=== PATIENT | female | born 1970 | race Caucasian/White ===

== ENCOUNTER → 2017-11-08 | Outpatient (CLI) | payer OTHER ==
[~2017-11-08] MED LIST: ARMTHY90PT PO; CHOL200038 PO; CYAN1TAB68 PO; METR-1 PO; MULT-885 PO; THYR60TA25 PO
--- NOTE | 2017-11-08 16:05 | RADIOLOGY IMAGING REPORT ---
FACILITY: [facility] PATIENT NAME: JHON TRAVIS : [id number] MR: [id number] V: [id number] EXAM DATE: [id number] ORDERING PHYSICIAN: LUIS ANTONIO KRISHNAMURTHY TECHNOLOGIST: Shanna Booth PROCEDURE:BILATERAL DIGITAL SCREENING MAMMOGRAM WITH CAD ASSISTED INTERPRETATION & 3D TOMOSYNTHESIS COMPARISON:10/03/15, and priors to 02/24/2011. INDICATIONS:screening FINDINGS: Breast parenchyma is heterogeneously dense. There is an asymmetry in the posterior superior Right breast in the MLO projection (slice 17). In the Left breast there is an asymmetry in the deep medial 9 o'clock area of the breast (CC slice 14, MLO slice 15). DIAGNOSTIC CATEGORY 0--INCOMPLETE: NEED ADDITIONAL IMAGING EVALUATION. RECOMMENDATIONS: 1. BILATERAL DIAGNOSTIC MAMMOGRAM. SPOT COMPRESSION RIGHT MLO VIEW WITH TOMOSYNTHESIS WELL A TRUE MLO VIEW WITH TOMOSYNTHESIS. LEFT BREAST SPOT COMPRESSION MEDIAL EXAGGERATED CC AND MLO VIEWS WITH TOMOSYNTHESIS WELL A TRUE MLO VIEW WITH TOMOSYNTHESIS. 2. ULTRASOUND OF THE RIGHT AND/OR LEFT BREAST INDICATED BY ADDITIONAL VIEWS. IMPRESSION: BIRADS 0: Incomplete Dictated by: Amadou Ojeda on 11/08/2017 at 15:29 Transcribed by: ROMI on 11/08/2017 at 16:01 Approved by: Amadou Ojeda on 11/08/2017 at 16:04 [facility]
== END ==
LOC: MAMO 00:45
PROVIDERS: ATTEND Obstetrics & Gynecology
DX: Z12.31 Encounter for screening mammogram for malignant neoplasm of breast (principal); R92.8 Other abnormal and inconclusive findings on diagnostic imaging of breast
CPT/HCPCS: 77063; 77067

== ENCOUNTER → 2017-11-18 | Outpatient (CLI) | payer OTHER ==
--- NOTE | 2017-11-21 10:55 | RADIOLOGY IMAGING REPORT ---
FACILITY: [facility] [place] PATIENT NAME: JHON TRAVIS : [id number] MR: [id number] V: [id number] EXAM DATE: ORDERING PHYSICIAN: LUIS ANTONIO KRISHNAMURTHY TECHNOLOGIST: Melissa Garrison RDMS PROCEDURE:US LEFT BREAST COMPARISON:None. INDICATIONS:Further evaluation FINDINGS: There is a 9mm cyst posterior to the Left nipple which would account for the recent mammographic findings. DIAGNOSTIC CATEGORY 2--BENIGN FINDING. RECOMMENDATIONS: ROUTINE MAMMOGRAM AND CLINICAL EVALUATION. IMPRESSION: BIRADS 2: Benign finding. There is a 9mm cyst posterior to the Left nipple which would account for the recent mammographic findings. Dictated by: Phyllis Samson M.D. on 11/18/2017 at 14:53 Transcribed by: ROMI on 11/18/2017 at 15:50 Approved by: Phyllis Samson M.D. on 11/21/2017 at 10:54 [facility]
--- NOTE | 2017-11-21 10:55 | RADIOLOGY IMAGING REPORT ---
[place] [facility] [place] NAME: JHON TRAVIS : [id number] MR: [id number] V: [id number] EXAM DATE: ORDERING PHYSICIAN: LUIS ANTONIO KRISHNAMURTHY TECHNOLOGIST: Shanna Booth PROCEDURE:BILATERAL DIAGNOSTIC DIGITAL MAMMOGRAM WITH 3D TOMOSYNTHESIS COMPARISON:Prior mammograms 11/08/17, 10/03/15, 07/19/14, 06/01/13, 05/05/12, 02/24/11. INDICATIONS:FURTHER EVAL FINDINGS: Patient returns for full field mediolateral view of both breasts, rolled views in Left MLO projection, Left XCC view, Spot compression view in the Left CC & MLO projections and in the Right MLO projection. The asymmetry seen on the recent mammogram in the posterior superior portion of the Right breast on the prior Right MLO view appears compressible and apparently represents summation shadow. The asymmetry in the deep medial approximate 9 o'clock position Left breast was reconfirmed with the additional views. Today's Left breast Ultrasound demonstrated and 9mm cyst just posterior to the Left nipple which would account for the mammographic findings. DIAGNOSTIC CATEGORY 2--BENIGN FINDING. RECOMMENDATIONS: ROUTINE MAMMOGRAM AND CLINICAL EVALUATION. IMPRESSION: BIRADS 2: Benign finding. There is a 9mm cyst posterior to the Left nipple which would account for the recent mammographic findings. The asymmetry in the upper portion Right breast on the previous Right MLO view appeared compressible. Dictated by: Phyllis Samson M.D. on 11/18/2017 at 14:52 Transcribed by: ROMI on 11/18/2017 at 15:55 Approved by: Phyllis Samson M.D. on 11/21/2017 at 10:54 [facility]
== END ==
LOC: MAMO 00:15
PROVIDERS: ATTEND Obstetrics & Gynecology
DX: N60.02 Solitary cyst of left breast (principal)
CPT/HCPCS: 77062; 77066